=== PATIENT | male | born 1950 | race Caucasian/White ===

== ENCOUNTER → 2020-08-25 | Outpatient (CLI) | payer MEDICARE, OTHER ==
[~2020-08-25] MED LIST: ALBUTEROL2.5 MG/3 M INH; ASPIRIN EC81 MG PO; AUGMENTIN 875-1 EACH PO; CIPRO500 MG PO; CLOPIDOGREL75 MG PO; COMPAZINE10 MG PO; DOC-Q-LACE100 MG PO; ELIQUIS5 MG PO; GAS-X ULTRA ST180 MG PO; GLUCOPHAGE1000 MG PO; HEARTBURN RELI150 M1 PO; IPRAT-ALBUT 0.5-3 ML INH; JANUMET 50-1,01 EACH PO; LANOXIN TAB0.125 MG PO; LASIX20 MG PO; LEVOFLOXACIN500 MG PO; LEVOFLOXACIN750 MG PO; LIPITOR20 MG PO; LISINOPRIL5 MG PO; LOSARTAN POTASS25 MG PO; LOVENOX SY80 MG/0.8 SQ; METOPROLOL SUCC25 MG PO; METOPROLOL SUCC50 MG PO; MIRALAX17 GM PO; MULTAQ 400 MG400 MG PO; NITROSTAT 0.40.4 MG SL; NORCO 7.5-3251 EACH PO; OXYCODONE HCL10 MG PO; PLAVIX 75 MG TA75 MG PO; PREDNISONE 20 M20 MG PO; PROVENTIL HFA 61 INH INH; SPIRONOLACTONE25 MG PO; TYLENOL 500 MG500 MG PO; VENTOLIN HFA 66.7 GM INH; VOLTAREN100 GM TP; Voltaren Gel 1% TOP; XYZAL5 MG PO; ZETIA10 MG PO; ZOFRAN4 MG PO
[2020-08-25 14:08] LABS: HEMOGLOBIN 14.6 gm/dl (14.0-17.5); RED BLOOD COUNT 4.91 M/UL (4.20-5.50); WHITE BLOOD COUNT 7.8 K/UL (4.5-11.0)
[2020-08-25 14:23] LABS: BUN/CREATININE RATIO 14 (0-10)
[2020-08-26 11:13] LABS: CREATININE, URINE 75.8 mg/dL (Not Estab.)
[2020-08-27 14:11] LABS: CHOLESTEROL, TOTAL 173 mg/dL (100-199); HDL SIZE 8.9 nm (>=9.2); HDL-C 39 mg/dL (>39); HDL-P (TOTAL) 28.3 umol/L (>=30.5); LARGE HDL-P 4.1 umol/L (>=4.8); LARGE VLDL-P 7.6 nmol/L (<=2.7); LDL SIZE 20.4 nm (>20.5); LDL SIZE 20.4 nm (>=20.8); LDL-C 108 mg/dL (0-99); LDL-P 1363 nmol/L (<1000); LP-IR SCORE 64 (<=45); SMALL LDL-P 781 nmol/L (<=527); TRIGLYCERIDES 149 mg/dL (0-149); VLDL SIZE 52.2 nm (<=46.6)
== END ==
LOC: LAB 13:41
PROVIDERS: Emergency Medicine
DX: I10 Essential (primary) hypertension (principal); E11.42 Type 2 diabetes mellitus with diabetic polyneuropathy; E11.65 Type 2 diabetes mellitus with hyperglycemia; E78.2 Mixed hyperlipidemia; I25.10 Atherosclerotic heart disease of native coronary artery without angina pectoris; I27.82 Chronic pulmonary embolism; I48.11 Longstanding persistent atrial fibrillation; I48.20 Chronic atrial fibrillation, unspecified; I48.21 Permanent atrial fibrillation; J15.8 Pneumonia due to other specified bacteria; J20.8 Acute bronchitis due to other specified organisms; L03.115 Cellulitis of right lower limb; R35.0 Frequency of micturition; R42 Dizziness and giddiness; S16.1XXA Strain of muscle, fascia and tendon at neck level, initial encounter; Z12.5 Encounter for screening for malignant neoplasm of prostate; V49.40XA Driver injured in collision with unspecified motor vehicles in traffic accident, initial encounter
CPT/HCPCS: 36415; 80053; 82043; 82570; 83036; 84443; 84550; 85025; G0103